=== PATIENT | female | born 2000 | race Caucasian/White ===

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

== ENCOUNTER 2022-10-21 19:30 | Emergency (ER) | payer OTHER ==
[~2022-10-21] VITALS: Ht 160 cm; Wt 100.2 kg
[~2022-10-21 19:30] MED LIST: APRI1 EACH PO; ONDANSETRON ODT8 MG PO
== END 2022-10-21 22:15 | disposition home or self-care (01) ==
LOC: ED 19:30
DX: O99.891 Other specified diseases and conditions complicating pregnancy (principal); R10.2 Pelvic and perineal pain; Z3A.11 11 weeks gestation of pregnancy
CPT/HCPCS: 36415; 76801; 76817; 80053; 81003; 84702; 85025; 99284-25; A9270; J7121

== ENCOUNTER 2023-03-20 07:37 | Emergency (ER) | payer BC, OTHER ==
[~2023-03-20] VITALS: Ht 160 cm; Wt 106.1 kg
--- OUTSIDE RECORDS SUMMARY | ~2023-03-20 | XMS | Continuity of Care Document ---
Demographics + + + | Address | [address] | | | [place] [address] | + + + | Preferred Language | Unknown | + + + | Marital Status | Never | + + + | Shinto Affiliation | Unknown | + + + | Race | White | + + + | Ethnic Group | Not or | + + + Author + + + | Author | [facility] | + + + | Organization | [facility] | + + + | Address | [address] | | | [place] [address] | + + + | Phone | | + + + Care Team Providers + + + + | Care Sole Tacker Name | Role | Phone | + + + + Unavailable | Unavailable | + + + + Unavailable | Unavailable | + + + + Allergies and Intolerances + + + + + + | date | description | facility | reaction | severity | + + + + + + | (no date) | No Known | [facility] | (no reaction) | (no severity) | | | Allergies | | | | + + + + + + Encounters No information. Functional Status No information. Immunizations No information. Medications + + + + | date | description | facility | + + + + | 2023-02-06 00:00 | ONDANSETRON | [facility] | + + + + | 2023-02-06 00:00 | FLUTICASONE PROPIONATE | [facility] | + + + + | 2019-06-03 00:00 | ONDANSETRON | [facility] | + + + + | 2022-10-21 00:00 | DESOGESTREL-ETHINYL | [facility] | | | ESTRADIOL | | + + + + | 2023-02-06 00:00 | DESOGESTREL-ETHINYL | [facility] | | | ESTRADIOL | | + + + + | 2023-02-06 00:00 | CYCLOBENZAPRINE HCL | [facility] | + + + + Problems + + + + | date | description | facility | + + + + | 2017-01-16 00:00 | Contusion of right knee | [facility] | + + + + | 2022-10-06 15:02 | ENCNTR FOR NACHO OF | [facility] | | | NORMAL FIRST PREG, FIRST | | | | TRIMESTER | | + + + + | 2022-10-06 15:02 | LESS THAN 8 WEEKS | [facility] | | | GESTATION OF | | + + + + | 2022-10-21 00:00 | Pain of round ligament | [facility] | + + + + | 2022-10-21 19:30 | PELVIC AND PERINEAL PAIN | [facility] | + + + + | 2022-10-21 19:30 | LEFT LOWER QUADRANT PAIN | [facility] | + + + + | 2022-10-21 19:30 | 11 WEEKS GESTATION OF | [facility] | | | | | + + + + | 2022-12-23 10:50 | ENCNTR FOR SUPRVSN OF | [facility] | | | NORMAL FIRST PREG, SECOND | | | | TRIMESTER | | + + + + | 2022-12-23 10:50 | 20 WEEKS GESTATION OF | [facility] | | | | | + + + + | 2023-01-08 12:58 | DECREASED MOVEMENTS, | [facility] | | | SECOND TRIMESTER, UNSP | | + + + + | 2023-01-08 12:58 | 22 WEEKS GESTATION OF | [facility] | | | | | + + + + | 2023-02-06 00:00 | Chest wall pain | [facility] | + + + + | 2023-02-06 00:00 | Nausea | [facility] | + + + + | 2023-02-06 21:57 | OTH RELATED | [facility] | | | CONDITIONS, SECOND | | | | TRIMESTER | | + + + + | 2023-02-06 21:57 | OTHER CHEST PAIN | [facility] | + + + + | 2023-02-06 21:57 | NAUSEA | [facility] | + + + + | 2023-02-06 21:57 | 27 WEEKS GESTATION OF | [facility] | | | | | + + + + | 2023-02-06 21:57 | 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 Results/Labs +--------+--------+ +---------+--------+---------+ | test | date | facility | value | unit | notes | +--------+--------+ +---------+--------+---------+ + + | Result panel 1 | + + + + + + + + + | | 2022-10-21 | [facility] | YELLOW | (missing) | (missing) | | (unavailable | 20:15:08 [facility] | | | | + + + + + + + + + | Result panel 2 | + + + + + + + + + | | 2022-10-21 | [facility] | SL CLOUDY | (missing) | (missing) | | (unavailable | 20:15:08 | [facility] | | | | + + + + + + + + + | Result panel 3 | + + + + + + + + + | | 2022-10-21 | [facility] | NEGATIVE | (missing) | (missing) | | (unavailable | 20:15:08 [facility] | | | | + + + + + + + + + | Result panel 4 | + + + + + + + + + | | 2022-10-21 | [facility] | POSITIVE | (missing) | (missing) | | (unavailable | 20:15:08 [facility] | | | | + + + + + + + + + | Result panel 5 | + + + + + +---------+ + + | | 2022-10-21 | [facility] | SMALL | (missing) | (missing) | | (unavailable | 20:15:08 [facility] | | | | + + + +---------+ + + + + | Result panel 6 | + + + + + +---------+ + + | | 2022-10-21 | [facility] | 1.025 | (missing) | (missing) | | (unavailable | 20:15:08 [facility] | | | | + + + +---------+ + + + + | Result panel 7 | + + + + + + + + + | | 2022-10-21 | [facility] | NEGATIVE | (missing) | (missing) | | (unavailable | 20:15:08 [facility] | | | | + + + + + + + + + | Result panel 8 | + + + + + +-------+ + + | | 2022-10-21 | [facility] | 6.0 | (missing) | (missing) | | (unavailable | 20:15:08 [facility] | | | | + + + +-------+ + + + + | Result panel 9 | + + + + + + + + + | | 2022-10-21 | [facility] | NEGATIVE | (missing) | (missing) | | (unavailable | 20:15:08 [facility] | | | | + + + + + + + + + | Result panel 10 | + + + + + +-------+ + + | | 2022-10-21 | [facility] | 1.0 | (missing) | (missing) | | (unavailable | 20:15:08 [facility] | | | | + + + +-------+ + + + + | Result panel 11 | + + + + + + + + + | | 2022-10-21 | [facility] | NEGATIVE | (missing) | (missing) | | (unavailable | 20:15:08 [facility] | | | | + + + + + + + + + | Result panel 12 | + + + + + + + + + | | 2022-10-21 | [facility] | NEGATIVE | (missing) | (missing) | | (unavailable | 20:15:08 [facility] | | | | + + + + + + + + + | Result panel 13 | + + + + + +-------+ + + | | 2022-10-21 | [facility] | 9.2 | (missing) | (missing) | | (unavailable | 20:25:08 [facility] | | | | + + + +-------+ + + + + | Result panel 14 | + + + + + +--------+ + + | | 2022-10-21 | [facility] | 4.70 | (missing) | (missing) | | (unavailable | 20:25:08 [facility] | | | | + + + +--------+ + + + + | Result panel 15 | + + + + + +--------+ + + | | 2022-10-21 | [facility] | 13.5 | (missing) | (missing) | | (unavailable | 20:25:08 [facility] | | | | + + + +--------+ + + + + | Result panel 16 | + + + + + +--------+ + + | | 2022-10-21 | [facility] | 40.9 | (missing) | (missing) | | (unavailable | 20:25:08 [facility] | | | | + + + +--------+ + + + + | Result panel 17 | + + + + + +--------+ + + | | 2022-10-21 | [facility] | 87.1 | (missing) | (missing) | | (unavailable | 20:25:08 [facility] | | | | + + + +--------+ + + + + | Result panel 18 | + + + + + +--------+ + + | | 2022-10-21 | [facility] | 28.7 | (missing) | (missing) | | (unavailable | 20:25:08 [facility] | | | | + + + +--------+ + + + + | Result panel 19 | + + + + + +--------+ + + | | 2022-10-21 | [facility] | 33.0 | (missing) | (missing) | | (unavailable | 20:25:08 [facility] | | | | + + + +--------+ + + + + | Result panel 20 | + + + + + +--------+ + + | | 2022-10-21 | [facility] | 13.6 | (missing) | (missing) | | (unavailable | 20:25:08 [facility] | | | | + + + +--------+ + + + + | Result panel 21 | + + + + + +-------+ + + | | 2022-10-21 | [facility] | 184 | (missing) | (missing) | | (unavailable | 20:25:08 [facility] | | | | + + + +-------+ + + + + | Result panel 22 | + + + + + +--------+ + + | | 2022-10-21 | [facility] | 61.8 | (missing) | (missing) | | (unavailable | 20:25:08 [facility] | | | | + + + +--------+ + + + + | Result panel 23 | + + + + + +--------+ + + | | 2022-10-21 | [facility] | 29.9 | (missing) | (missing) | | (unavailable | 20:25:08 [facility] | | | | + + + +--------+ + + + + | Result panel 24 | + + + + + +-------+ + + | | 2022-10-21 | [facility] | 5.9 | (missing) | (missing) | | (unavailable | 20:25:08 [facility] | | | | + + + +-------+ + + + + | Result panel 25 | + + + + + +-------+ + + | | 2022-10-21 | [facility] | 1.7 | (missing) | (missing) | | (unavailable | 20:25:08 [facility] | | | | + + + +-------+ + + + + | Result panel 26 | + + + + + +-------+ + + | | 2022-10-21 | [facility] | 0.7 | (missing) | (missing) | | (unavailable | 20:25:08 [facility] | | | | + + + +-------+ + + + + | Result panel 27 | + + + + + +------+---------+ + | | 2022-10-21 | [facility] | 88 | mg/dL | (missing) | | (unavailable | 20:25:08 [facility] | | | | + + + +------+---------+ + + + | Result panel 28 | + + + + + +-----+---------+ + | | 2022-10-21 | [facility] | 7 | mg/dL | (missing) | | (unavailable | 20:25:08 [facility] | | | | + + + +-----+---------+ + + + | Result panel 29 | + + + + + +--------+---------+ + | | 2022-10-21 | [facility] | 0.69 | mg/dL | (missing) | | (unavailable | 20:25:08 [facility] | | | | + + + +--------+---------+ + + + | Result panel 30 | + + + + + +-------+ + + | | 2022-10-21 | [facility] | 127 | (missing) | (missing) | | (unavailable | 20:25:08 [facility] | | | | + + + +-------+ + + + + | Result panel 31 | + + + + + +---------+ + + | | 2022-10-21 | [facility] | 10.14 | (missing) | (missing) | | (unavailable | 20:25:08 [facility] | | | | + + + +---------+ + + + + | Result panel 32 | + + + + + +-------+ + + | | 2022-10-21 | [facility] | 138 | (missing) | (missing) | | (unavailable | 20:25:08 [facility] | | | | + + + +-------+ + + + + | Result panel 33 | + + + + + +-------+ + + | | 2022-10-21 | [facility] | 3.3 | (missing) | (missing) | | (unavailable | 20:25:08 [facility] | | | | + + + +-------+ + + + + | Result panel 34 | + + + + + +-------+ + + | | 2022-10-21 | [facility] | 102 | (missing) | (missing) | | (unavailable | 20:25:08 | [facility] | | | | + + + +-------+ + + + + | Result panel 35 | + + + + + +------+ + + | | 2022-10-21 | [facility] | 24 | (missing) | (missing) | | (unavailable | 20:25:08 [facility] | | | | + + + +------+ + + + + | Result panel 36 | + + + + + +--------+ + + | | 2022-10-21 | [facility] | 15.3 | (missing) | (missing) | | (unavailable | 20:25:08 [facility] | | | | + + + +--------+ + + + + | Result panel 37 | + + + + + +-------+---------+ + | | 2022-10-21 | [facility] | 9.2 | mg/dL | (missing) | | (unavailable | 20:25:08 [facility] | | | | + + + +-------+---------+ + + + | Result panel 38 | + + + + + +-------+ + + | | 2022-10-21 | [facility] | 7.5 | (missing) | (missing) | | (unavailable | 20:25:08 [facility] | | | | + + + +-------+ + + + + | Result panel 39 | + + + + + +-------+ + + | | 2022-10-21 | [facility] | 3.6 | (missing) | (missing) | | (unavailable | 20:25:08 [facility] | | | | + + + +-------+ + + + + | Result panel 40 | + + + + + +-------+ + + | | 2022-10-21 | [facility] | 3.9 | (missing) | (missing) | | (unavailable | 20:25:08 [facility] | | | | + + + +-------+ + + + + | Result panel 41 | + + + + + +--------+ + + | | 2022-10-21 | [facility] | 0.92 | (missing) | (missing) | | (unavailable | 20:25:08 [facility] | | | | + + + +--------+ + + + + | Result panel 42 | + + + + + +-------+ + + | | 2022-10-21 | [facility] | 0.3 | (missing) | (missing) | | (unavailable | 20:25:08 [facility] | | | | + + + +-------+ + + + + | Result panel 43 | + + + + + +------+ + + | | 2022-10-21 | [facility] | 27 | (missing) | (missing) | | (unavailable | 20:25:08 [facility] | | | | + + + +------+ + + + + | Result panel 44 | + + + + + +------+ + + | | 2022-10-21 | [facility] | 34 | (missing) | (missing) | | (unavailable | 20:25:08 [facility] | | | | + + + +------+ + + + + | Result panel 45 | + + + + + +------+ + + | | 2022-10-21 | [facility] | 66 | (missing) | (missing) | | (unavailable | 20:25:08 [facility] | | | | + + + +------+ + + + + | Result panel 46 | + + + + + +---------+ + + | | 2022-10-21 | [facility] | [address] | (missing) | (missing) | | (unavailable | 20:25:08 [facility] | | | | + + + +---------+ + + + + | Result panel 47 | + + + + + +--------+ + + | | 2023-02-06 | [facility] | 10.6 | (missing) | (missing) | | (unavailable | 22:20:07 [facility] | | | | + + + +--------+ + + + + | Result panel 48 | + + + + + +--------+ + + | | 2023-02-06 | [facility] | 62.1 | (missing) | (missing) | | (unavailable | 22:20:07 [facility] | | | | + + + +--------+ + + + + | Result panel 49 | + + + + + +--------+ + + | | 2023-02-06 | [facility] | 28.2 | (missing) | (missing) | | (unavailable | 22:20:07 [facility] | | | | + + + +--------+ + + + + | Result panel 50 | + + + + + +-------+ + + | | 2023-02-06 | [facility] | 6.0 | (missing) | (missing) | | (unavailable | 22:20:07 [facility] | | | | + + + +-------+ + + + + | Result panel 51 | + + + + + +-------+ + + | | 2023-02-06 | [facility] | 3.2 | (missing) | (missing) | | (unavailable | 22:20:07 [facility] | | | | + + + +-------+ + + + + | Result panel 52 | + + + + + +-------+ + + | | 2023-02-06 | [facility] | 0.5 | (missing) | (missing) | | (unavailable | 22:20:07 [facility] | | | | + + + +-------+ + + + + | Result panel 53 | + + + + + +--------+ + + | | 2023-02-06 | [facility] | 3.93 | (missing) | (missing) | | (unavailable | 22:20:07 [facility] | | | | + + + +--------+ + + + + | Result panel 54 | + + + + + +--------+ + + | | 2023-02-06 | [facility] | 11.6 | (missing) | (missing) | | (unavailable | 22:20:07 [facility] | | | | + + + +--------+ + + + + | Result panel 55 | + + + + + +------+---------+ + | | 2023-02-06 | [facility] | 79 | mg/dL | (missing) | | (unavailable | 22:20:07 [facility] | | | | + + + +------+---------+ + + + | Result panel 56 | + + + + + +-----+---------+ + | | 2023-02-06 | [facility] | 7 | mg/dL | (missing) | | (unavailable | 22:20:07 [facility] | | | | + + + +-----+---------+ + + + | Result panel 57 | + + + + + +--------+---------+ + | | 2023-02-06 | [facility] | 0.60 | mg/dL | (missing) | | (unavailable | 22:20:07 [facility] | | | | + + + +--------+---------+ + + + | Result panel 58 | + + + + + +-------+ + + | | 2023-02-06 | [facility] | 130 | (missing) | (missing) | | (unavailable | 22:20:07 [facility] | | | | + + + +-------+ + + + + | Result panel 59 | + + + + + +---------+ + + | | 2023-02-06 | [facility] | 11.66 | (missing) | (missing) | | (unavailable | 22:20:07 [facility] | | | | + + + +---------+ + + + + | Result panel 60 | + + + + + +-------+ + + | | 2023-02-06 | [facility] | 137 | (missing) | (missing) | | (unavailable | 22:20:07 [facility] | | | | + + + +-------+ + + + + | Result panel 61 | + + + + + +-------+ + + | | 2023-02-06 | [facility] | 3.2 | (missing) | (missing) | | (unavailable | 22:20:07 [facility] | | | | + + + +-------+ + + + + | Result panel 62 | + + + + + +-------+ + + | | 2023-02-06 | [facility] | 105 | (missing) | (missing) | | (unavailable | 22:20:07 [facility] | | | | + + + +-------+ + + + + | Result panel 63 | + + + + + +------+ + + | | 2023-02-06 | [facility] | 24 | (missing) | (missing) | | (unavailable | 22:20:07 [facility] | | | | + + + +------+ + + + + | Result panel 64 | + + + + + +--------+ + + | | 2023-02-06 | [facility] | 34.7 | (missing) | (missing) | | (unavailable | 22:20:07 [facility] | | | | + + + +--------+ + + + + | Result panel 65 | + + + + + +--------+ + + | | 2023-02-06 | [facility] | 11.2 | (missing) | (missing) | | (unavailable | 22:20:07 [facility] | | | | + + + +--------+ + + + + | Result panel 66 | + + + + + +-------+---------+ + | | 2023-02-06 | [facility] | 8.6 | mg/dL | (missing) | | (unavailable | ::07 | [facility] | | | | + + + +-------+---------+ + + + | Result panel 67 | + + + + + +-------+ + + | | 2023-02-06 | [facility] | 6.6 | (missing) | (missing) | | (unavailable | 22:20:07 [facility] | | | | + + + +-------+ + + + + | Result panel 68 | + + + + + +-------+ + + | | 2023-02-06 | [facility] | 2.7 | (missing) | (missing) | | (unavailable | 22:20:07 [facility] | | | | + + + +-------+ + + + + | Result panel 69 | + + + + + +-------+ + + | | 2023-02-06 | [facility] | 3.9 | (missing) | (missing) | | (unavailable | 22:20:07 [facility] | | | | + + + +-------+ + + + + | Result panel 70 | + + + + + +--------+ + + | | 2023-02-06 | [facility] | 0.69 | (missing) | (missing) | | (unavailable | 22:20:07 [facility] | | | | + + + +--------+ + + + + | Result panel 71 | + + + + + +-------+ + + | | 2023-02-06 | [facility] | 0.2 | (missing) | (missing) | | (unavailable | 22:20:07 [facility] | | | | + + + +-------+ + + + + | Result panel 72 | + + + + + +------+ + + | | 2023-02-06 | [facility] | 21 | (missing) | (missing) | | (unavailable | 22:20:07 [facility] | | | | + + + +------+ + + + + | Result panel 73 | + + + + + +------+ + + | | 2023-02-06 | [facility] | 40 | (missing) | (missing) | | (unavailable | 22:20:07 [facility] | | | | + + + +------+ + + + + | Result panel 74 | + + + + + +------+ + + | | 2023-02-06 | [facility] | 77 | (missing) | (missing) | | (unavailable | 22:20:07 [facility] | | | | + + + +------+ + + + + | Result panel 75 | + + + + + +--------+ + + | | 2023-02-06 | [facility] | 88.3 | (missing) | (missing) | | (unavailable | 22:20:07 [facility] | | | | + + + +--------+ + + + + | Result panel 76 | + + + + + +--------+ + + | | 2023-02-06 | [facility] | <4.0 | (missing) | (missing) | | (unavailable | 22:20:07 [facility] | | | | + + + +--------+ + + + + | Result panel 77 | + + + + + +--------+ + + | | 2023-02-06 | [facility] | 29.4 | (missing) | (missing) | | (unavailable | ::07 | [facility] | | | | + + + +--------+ + + + + | Result panel 78 | + + + + + +--------+ + + | | 2023-02-06 | [facility] | 33.3 | (missing) | (missing) | | (unavailable | ::07 | [facility] | | | | + + + +--------+ + + + + | Result panel 79 | + + + + + +--------+ + + | | 2023-02-06 | [facility] | 13.6 | (missing) | (missing) | | (unavailable | 22:20:07 [facility] | | | | + + + +--------+ + + + + | Result panel 80 | + + + + + +-------+ + + | | 2023-02-06 | [facility] | 162 | (missing) | (missing) | | (unavailable | 22:20:07 [facility] | | | | + + + +-------+ + + + + | Result panel 81 | + + + + + + + + + | | 2023-02-06 | [facility] | YELLOW | (missing) | (missing) | | (unavailable | 22:37:07 [facility] | | | | + + + + + + + + + | Result panel 82 | + + + + + +---------+ + + | | 2023-02-06 | [facility] | CLEAR | (missing) | (missing) | | (unavailable | 22:37:07 [facility] | | | | + + + +---------+ + + + + | Result panel 83 | + + + + + + + + + | | 2023-02-06 | [facility] | NEGATIVE | (missing) | (missing) | | (unavailable | 22:37:07 [facility] | | | | + + + + + + + + + | Result panel 84 | + + + + + + + + + | | 2023-02-06 | [facility] | NEGATIVE | (missing) | (missing) | | (unavailable | 22:37:07 [facility] | | | | + + + + + + + + + | Result panel 85 | + + + + + + + + + | | 2023-02-06 | [facility] | NEGATIVE | (missing) | (missing) | | (unavailable | 22:37:07 [facility] | | | | + + + + + + + + + | Result panel 86 | + + + + + +---------+ + + | | 2023-02-06 | [facility] | 1.010 | (missing) | (missing) | | (unavailable | 22:37:07 [facility] | | | | + + + +---------+ + + + + | Result panel 87 | + + + + + + + + + | | 2023-02-06 | [facility] | NEGATIVE | (missing) | (missing) | | (unavailable | 22:37:07 [facility] | | | | + + + + + + + + + | Result panel 88 | + + + + + +-------+ + + | | 2023-02-06 | [facility] | 7.0 | (missing) | (missing) | | (unavailable | 22:37:07 [facility] | | | | + + + +-------+ + + + + | Result panel 89 | + + + + + + + + + | | 2023-02-06 | [facility] | NEGATIVE | (missing) | (missing) | | (unavailable | 22:37:07 [facility] | | | | + + + + + + + + + | Result panel 90 | + + + + + + + + + | | 2023-02-06 | [facility] | NORMAL | (missing) | (missing) | | (unavailable | 22:37:07 | [facility] | | | | + + + + + + + + + | Result panel 91 | + + + + + + + + + | | 2023-02-06 | [facility] | NEGATIVE | (missing) | (missing) | | (unavailable | 22:37:07 | [facility] | | | | + + + + + + + + + | Result panel 92 | + + + + + +---------+ + + | | 2023-02-06 | [facility] | SMALL | (missing) | (missing) | | (unavailable | 22:37:07 | [facility] | | | | + + + +---------+ + + + + | Result panel 93 | + + + + + +-------+ + + | | 2023-02-06 | [facility] | 0-1 | (missing) | (missing) | | (unavailable | 22:37:07 | [facility] | | | | + + + +-------+ + + + + | Result panel 94 | + + + + + +-------+ + + | | 2023-02-06 | [facility] | 2-3 | (missing) | (missing) | | (unavailable | [facility]:37:07 | [facility] | | | | + + + +-------+ + + + + | Result panel 95 | + + + + + + + + + | | 2023-02-06 | [facility] | SQUAMOUS 1+ | (missing) | (missing) | | (unavailable | 22:37:07 | [facility] | | | | + + + + + + + + + | Result panel 96 | + + + + + +------+ + + | | 2023-02-06 | [facility] | No | (missing) | (missing) | | (unavailable | 22:37:07 | [facility] | | | | + + + +------+ + + Social History No information. Vital Signs + + + +---------+ | date | measurement | value | units | + + + +---------+ | 2022-10-21 00:00 | BMI | 39.1 | kg/m2 | + + + +---------+ | 2022-10-21 00:00 | BP_diastolic | 61 | mmHg | + + + +---------+ | 2022-10-21 00:00 | BP_systolic | 123 | mmHg | + + + +---------+ | 2022-10-21 00:00 | heart_rate | 91 | /min | + + + +---------+ | 2022-10-21 00:00 | height_metric | 160.02 | cm | + + + +---------+ | 2022-10-21 00:00 | height_standard | 63 | in | + + + +---------+ | 2022-10-21 00:00 | o2_saturation | 100 | % | + + + +---------+ | 2022-10-21 00:00 | respiration_rate | 11 | /min | + + + +---------+ | 2022-10-21 00:00 | temperature_metric | 36.67 | C | | | | | | + + + +---------+ | 2022-10-21 00:00 | | 98 | F | | | temperature_standar | | | | | d | | | + + + +---------+ | 2022-10-21 00:00 | weight_metric | 100.24 | kg | + + + +---------+ | 2022-10-21 00:00 | weight_standard | 220.99 | lb | + + + +---------+ | 2022-10-21 00:00 | weight_standard | 221 | lb | + + + +---------+ | 2023-02-06 00:00 | BMI | 40.6 | kg/m2 | + + + +---------+ | 2023-02-06 00:00 | BP_diastolic | 77 | mmHg | + + + +---------+ | 2023-02-06 00:00 | BP_systolic | 124 | mmHg | + + + +---------+ | 2023-02-06 00:00 | heart_rate | 78 | /min | + + + +---------+ | 2023-02-06 00:00 | height_metric | 160.02 | cm | + + + +---------+ | 2023-02-06 00:00 | height_standard | 63 | in | + + + +---------+ | 2023-02-06 00:00 | o2_saturation | 100 | % | + + + +---------+ | 2023-02-06 00:00 | respiration_rate | 16 | /min | + + + +---------+ | 2023-02-06 00:00 | temperature_metric | 36.67 | C | | | | | | + + + +---------+ | 2023-02-06 00:00 | | 98 | F | | | temperature_standar | | | | | d | | | + + + +---------+ | 2023-02-06 00:00 | weight_metric | 103.9 | kg | + + + +---------+ | 2023-02-06 00:00 | weight_standard | 229.06 | lb | + + + +---------+"
--- OUTSIDE RECORDS SUMMARY | ~2023-03-20 | XMS | Continuity of Care Document ---
Demographics + + + | Address | [address] | | | [place] [address] | + + + | Preferred Language | Unknown | + + + | Marital Status | Never | + + + | Pentecostalism Affiliation | Unknown | + + + | Race | White | + + + | Ethnic Group | Not or | + + + Author + + + | Author | [facility] | + + + | Organization | [facility] | + + + | Address | [address] [facility] | | | [place] [address] | + + + | Phone | | + + + Care Team Providers + + + + | Care Area Development Consultant Name | Role | Phone | + [...] | 2023-02-06 00:00 | ONDANSETRON | [facility] | + + + + | 2023-02-06 00:00 | FLUTICASONE PROPIONATE | [facility] | + + + + | 2019-06-03 00:00 | ONDANSETRON | [facility] | + + + + | 2022-10-21 00:00 | DESOGESTREL-ETHINYL | [facility] | | | ESTRADIOL | | + + + + | 2023-02-06 00:00 | DESOGESTREL-ETHINYL | [facility] | | | ESTRADIOL | | + + + + | 2023-02-06 00:00 | CYCLOBENZAPRINE HCL | [facility] | + + + + Problems + + + + | date | description | facility | + + + + | 2017-01-16 00:00 | Contusion of right knee | [facility] | + + + + | 2022-10-06 [...] | Pain of round ligament | [facility] | + + + + | [...] 00:00 | Chest wall pain | [facility] | + + + + | 2023-02-06 00:00 | Nausea | [facility] | + + + + | [...] + + | 2023-02-06 21:57 | OTHER [employer]ER (CURRENT) | [facility] | | | DRUG [...] | | 2022-10-21 | [facility] | [id number] | (missing) | (missing) | | (unavailable [...]
[~2023-03-20 07:37] MED LIST changes: +CYCLOBENZAPRINE10 MG PO; +FLONASE ALLERG9.9 ML NAS; +ONDANSETRON ODT4 MG PO; +PRENATAL GUMMI1 EACH PO
[2023-03-20 08:12] VITALS: BP 99/72
== END 2023-03-20 08:13 | disposition home or self-care (01) ==
LOC: ED 07:37
DX: R07.0 Pain in throat (principal); Z79.899 Other long term (current) drug therapy
CPT/HCPCS: 99283

== ENCOUNTER 2024-07-18 05:28 | Inpatient (IN) | payer BC, OTHER ==
[~2024-07-18] VITALS: Ht 160 cm; Wt 124.3 kg
[2024-07-18] MEDS ORDERED: OXYTOCIN/DEXTROSE 5% 20 UNITS/100 ML BAG IV SCH (05:45)
[2024-07-18] MEDS ORDERED: CALCIUM CARBONATE 500 MG CHEW PO PRN (05:45)
[2024-07-18] MEDS ORDERED: LIDOCAINE 2% VISCOUS 6 ML SYR TOP ONE ×2 (05:45)
[2024-07-18] MEDS ORDERED: LACTATED RINGER'S 1,000 ML IV SCH (05:45)
[2024-07-18] MEDS ORDERED: LACTATED RINGER'S 1,000 ML IV PRN (05:45)
[2024-07-18] MEDS ORDERED: MAGNESIUM HYDROXIDE/AL HYDROX 30 ML CUP PO PRN (05:45)
[2024-07-18 06:04] VITALS: BP 102/51
[2024-07-18 06:30] LABS: AMPHETAMINES, URINE NEGATIVE (NEGATIVE); BARBITURATES, URINE NEGATIVE (NEGATIVE); BENZODIAZEPINE, URINE NEGATIVE (NEGATIVE); BUPRENORPHINE, URINE NEGATIVE (NEGATIVE); CANNABINOID, URINE NEGATIVE (NEGATIVE); COCAINE, URINE NEGATIVE (NEGATIVE); ECSTASY, URINE NEGATIVE (NEGATIVE); FENTANYL, URINE NEGATIVE (NEGATIVE); METHADONE, URINE NEGATIVE (NEGATIVE); OPIATES, URINE NEGATIVE (NEGATIVE); OXYCODONE, URINE NEGATIVE (NEGATIVE); PHENCYCLIDINE, URINE NEGATIVE (NEGATIVE)
[2024-07-18 06:47] LABS: HEMATOCRIT 36.4 % (35.0-50.0); HEMOGLOBIN 12.1 g/dL (12.0-18.0); MCH 28.5 (27-36); MCHC 33.3 g/dl (30-36); MCV 85.6 fl (81-99); RBC 4.25 M/ul (4.3-5.7); RDW 16.5 (10.5-15.0)
[2024-07-18 07:19] LABS: ABO A; ANTIBODY SCREEN NEGATIVE; RH POSITIVE
[2024-07-18] MEDS ORDERED: OXYTOCIN/0.9 % SODIUM CHLORIDE 500 ML IV SCH (11:15)
[2024-07-18] MEDS ORDERED: fentaNYL citrate 100 MCG/2 ML VIAL ONE (16:37)
[2024-07-18] MEDS ORDERED: LACTATED RINGER'S 500 ML IV PRN (16:45)
[2024-07-18] MEDS ORDERED: ePHEDrine sulfate 5 MG/ML SYRINGE IV PRN (16:45)
[2024-07-18] MEDS ORDERED: LACTATED RINGER'S 2,000 ML IV ONE (16:45)
[2024-07-18] MEDS ORDERED: ROPIVACAINE 0.2% 200 ML BAG EPIDURAL SCH (16:45)
[2024-07-18] MEDS ORDERED: ePHEDrine KIT FOR FBC IV ONE ×2 (17:13→20:04)
[2024-07-18] MEDS ORDERED: TERBUTALINE SULFATE 1 MG/ML AMP SUB-Q ONE (18:15)
[2024-07-19] MEDS ORDERED: OXYCODONE/APAP 5/325 TAB PO PRN (05:15)
[2024-07-19] MEDS ORDERED: BENZOCAINE 60 ML AEROSOL TOP PRN (05:15)
[2024-07-19] MEDS ORDERED: HYDROCORTISONE ACETATE 25 MG SUPP PR PRN (05:15)
[2024-07-19] MEDS ORDERED: OXYTOCIN/0.9 % SODIUM CHLORIDE 500 ML IV SCH (05:15)
[2024-07-19] MEDS ORDERED: MAGNESIUM HYDROXIDE/AL HYDROX 30 ML CUP PO PRN (05:15)
[2024-07-19] MEDS ORDERED: IBUPROFEN 600 MG TAB PO PRN (05:15)
[2024-07-19] MEDS ORDERED: MAGNESIUM HYDROXIDE 30 ML UDC PO PRN (05:15)
[2024-07-19] MEDS ORDERED: ACETAMINOPHEN 325 MG TAB PO PRN (05:15)
[2024-07-19] MEDS ORDERED: CALCIUM CARBONATE 500 MG CHEW PO PRN (05:15)
[2024-07-19] MEDS ORDERED: WITCH HAZEL/GLYCERIN 1 EA PAD TOP PRN (05:15)
[2024-07-19] MEDS ORDERED: HYDROCODONE/ACETA 5/325 TAB PO PRN (05:15)
[2024-07-19] MEDS ORDERED: SENNOSIDES/DOCUSATE 1 EA TAB PO SCH (09:00)
[2024-07-19 18:54] LABS: HEMATOCRIT 32.2 % (35.0-50.0); HEMOGLOBIN 10.5 g/dL (12.0-18.0); MCH 28.3 (27-36); MCHC 32.7 g/dl (30-36); MCV 86.6 fl (81-99); RBC 3.72 M/ul (4.3-5.7); RDW 16.5 (10.5-15.0)
[2024-07-21] MEDS ORDERED: VALACYCLOVIR HCL 500 MG TAB PO ONE (09:00)
--- NOTE | 2024-07-24 16:14 | PR ---
[facility] [address] [facility] [place], [place] [address] Signed Progress Notes IP Datetime Report Generated by CPN: 07/18/2024 12:29 PROGRESS NOTES: [id number] Impression: Reassuring Heart Rate Plan: Continue Present Management; Augmentation VITAL SIGNS: [id number] Vital Signs: Reviewed; Within Normal Limits EXAM: [id number] Effacement: 70 Station: -3 MEMBRANES: [id number] ROM Note: No fluid noted on chux. Comments: Pt sleeping. Doing well. Cat 1 tracing. On pitocin augmentation w/ rare contractions. Continue pitocin per protocol. FETUS A: [id number] FHR Baseline: 130 Variability: Moderate 6-25bpm Accelerations: 15X15 Decelerations: None FHR Category: Category I Presentation: Vertex Comments on Fetus A: No evidence of metabolic acidosis FETUS B: [id number] Signing Physician: Suzanne Morgan DO Copies: ~ *Electronically Signed* 07/18/24 9313 SUZANNE MORGAN (MICHAEL) DO PATIENT NAME: KAREY GUZMAN PROGRESS NOTE DATE OF : 00 PHYSICIAN: SUZANNE MORGAN (MICHAEL) DO RPT #: [id number] REPORT IS CONFIDENTIAL AND NOT TO BE RELEASED WITHOUT AUTHORIZATION
--- NOTE | 2024-07-24 16:14 | PR ---
[facility] [address] [place], [place] [address] Signed Progress Notes IP Datetime Report Generated by CPN: 07/18/2024 15:03 PROGRESS NOTES: [id number] Impression: Normal Progression of Labor; Reassuring Heart Rate Procedures: Intrauterine Pressure Catheter; Scalp Electrode; Sterile Vag Exam Plan: Continue Present Management; Augmentation Informed Consent Obtain: Vaginal Delivery VITAL SIGNS: [id number] Vital Signs: Reviewed; Within Normal Limits EXAM: [id number] Dilatation: 3.0 Effacement: 75 Station: -2 MEMBRANES: [id number] ROM Note: No fluid noted on chux. Comments: Pt seen and examined. Doing well. Comfortable w/ contractions. Difficulty monitoring CTXs and fetus. Recommended IUPC / FSE. Placed w/out difficulty after verbal consent obtained. Discussed titration of pitocin as needed to establish adequate contractions. Anticipate . Epidural on demand FETUS A: [id number] FHR Baseline: 130 Variability: Moderate 6-25bpm Accelerations: 15X15 Decelerations: None FHR Category: Category I Presentation: Vertex Comments on Fetus A: No evidence of metabolic acidosis FETUS B: [id number] Signing Physician: Suzanne Morgan DO Copies: ~ *Electronically Signed* 07/18/24 4911 SUZANNE MORGAN (MICHAEL) DO PATIENT NAME: KAREY GUZMAN PROGRESS NOTE DATE OF : 00 PHYSICIAN: SUZANNE MORGAN (JD) DO RPT #: [id number] REPORT IS CONFIDENTIAL AND NOT TO BE RELEASED WITHOUT AUTHORIZATION
--- NOTE | 2024-07-24 16:14 | PR ---
[facility] [address] [place], [place] [address] Signed Progress Notes IP Datetime Report Generated by CPN: 07/18/2024 20:21 PROGRESS NOTES: [id number] Impression: Reassuring Heart Rate Procedures: Sterile Vag Exam Other Procedures: Exam per RN Plan: Anesthesia Consult Other Plans: Restart pitocin augmentation w/ sustained normotension Informed Consent Obtain: Risks, Benefits and Alternatives Discussed VITAL SIGNS: [id number] Vital Signs: Reviewed; Within Normal Limits EXAM: [id number] Dilatation: 4.0 Effacement: 75 Station: -2 Contractions: Rare MEMBRANES: [id number] Membranes Status: Ruptured ROM Note: No fluid noted on chux. Comments: Pt seen and evaluted. Doing well. Relative hypotension w/out lightheadedness or dizziness. Cat 1 tracing with rare and inadequate contractions. Anesthesia was notified and RN instructed to continue IV fluid bolus, decrease epidural rate, and continue ephedrine. Once stable normotension noted, will plan on restarting pitocin augmentation. No evidence of intraamniotic infection. Reviewed plan in detail w/ pt and pt understands and agrees. All questions answered. FETUS A: [id number] FHR Baseline: 130 Variability: Moderate 6-25bpm Accelerations: 15X15 Decelerations: None FHR Category: Category I Presentation: Vertex Comments on Fetus A: No evidence of metabolic acidosis FETUS B: [id number] Signing Physician: Suzanne Morgan DO Copies: *Electronically Signed* 07/18/242020 SUZANNE MORGAN (MICHAEL) DO PATIENT NAME: KAREY GUZMAN PROGRESS NOTE DATE OF : 00 PHYSICIAN: SUZANNE MORGAN (JD) DO RPT #: [id number] REPORT IS CONFIDENTIAL AND NOT TO BE RELEASED WITHOUT AUTHORIZATION [facility] [address] [place] [address] [place] [address] Signed ~ *Electronically Signed* 07/18/242020 SUZANNE MORGAN) DO PATIENT NAME: KAREY GUZMAN PROGRESS NOTE DATE OF : 00 PHYSICIAN: SUZANNE MORGAN (JD) DO RPT #: [id number] REPORT IS CONFIDENTIAL AND NOT TO BE RELEASED WITHOUT AUTHORIZATION
--- NOTE | 2024-07-24 16:14 | PR ---
[facility] [address] [place], [place] [address] Signed Progress Notes IP Datetime Report Generated by CPN: 07/18/2024 18:15 PROGRESS NOTES: [id number] Impression: Normal Progression of Labor; Reassuring Heart Rate Procedures: Intrauterine Pressure Catheter; Sterile Vag Exam Plan: Tocolysis Informed Consent Obtain: Vaginal Delivery VITAL SIGNS: [id number] Vital Signs: Reviewed; Within Normal Limits EXAM: [id number] Dilatation: 4.0 Effacement: 75 Station: -2 Contractions: Rare MEMBRANES: [id number] Membranes Status: Ruptured ROM Note: No fluid noted on chux. Comments: Pt seen and examined. Labile BPs following epidural placement. Pt given ephedrine per protocol. IUPC was dislodged during epidural and was replaced after verbal consent. Prolonged deceleration noted. Pitocin previously stopped. Repositioning and IV fluid bolus given. Subq terbutaline administered. FHT reasuring now. Will monitor. Discussed w/ pt and recommend continued trial of vaginal delivery. Pt understands w/ plan of care. All questions answered. FETUS A: [id number] FHR Baseline: 130 Variability: Minimal - >Undetectable to <=5bpm Accelerations: 15X15 Decelerations: None FHR Category: Category II Presentation: Vertex Comments on Fetus A: No evidence of metabolic acidosis FETUS B: [id number] Signing Physician: Suzanne Morgan DO Copies: ~ *Electronically Signed* 07/18/24 5721 SUZANNE MORGAN (MICHAEL) DO PATIENT NAME: KAREY GUZMAN PROGRESS NOTE DATE OF : 00 PHYSICIAN: SUZANNE MORGAN (JD) DO RPT #: [id number] REPORT IS CONFIDENTIAL AND NOT TO BE RELEASED WITHOUT AUTHORIZATION
--- NOTE | 2024-07-24 16:14 | PR ---
[facility] [address] [facility] [place], [place] [address] Signed PP Progress Notes Datetime Report Generated by CPN: 07/20/2024 08:28 SUBJECTIVE: [id number] Pain: Within Normal Limits Nausea/Vomiting: Denies Flatus: Yes Vital Signs: [id number] Vital Signs: Reviewed; Within Normal Limits Cardiovascular: Normal Respiratory: Normal Abdomen/Uterus: Normal Lochia: Normal Vulva/Perineum: Not Done Breasts: Not Done CVA Tenderness: Normal Extremities: Normal Incision: Not Applicable Progress: Normal Exam Comments: Fundus firm U-2 nontender IMPRESSION/PLAN/PROCEDURES: [id number] Impression: Normal Progression Progress Notes: Pt doing well. Ambulating, voiding, and tolerating full diet. Pain and lochia minimal. . No fever/chills or other concerns. Anticipate d/c home tomorrow with baby. No questions or concerns. Signing Physician: Suzanne Morgan DO Copies: ~ *Electronically Signed* 07/20/24827 SUZANNE MORGAN (MICHAEL) DO PATIENT NAME: KAREY GUZMAN PROGRESS NOTE DATE OF : 00 PHYSICIAN: SUZANNE MORGAN (MICHAEL) DO RPT #: [id number] REPORT IS CONFIDENTIAL AND NOT TO BE RELEASED WITHOUT AUTHORIZATION
--- NOTE | 2024-07-24 16:14 | PR ---
[facility] [address] [facility] [place], [place] [address] Signed PP Progress Notes Datetime Report Generated by CPN: 07/21/2024 08:41 SUBJECTIVE: [id number] Pain: Within Normal Limits Nausea/Vomiting: Denies Flatus: Yes Bowel Movement: Yes Vital Signs: [id number] Vital Signs: Reviewed; Within Normal Limits Cardiovascular: Normal Respiratory: Normal Abdomen/Uterus: Normal Lochia: Normal Vulva/Perineum: Not Done Breasts: Not Done CVA Tenderness: Normal Extremities: Normal Incision: Not Applicable Progress: Normal Exam Comments: Fundus firm U-2 nontender IMPRESSION/PLAN/PROCEDURES: [id number] Impression: Normal Progression Plan: Discharge Progress Notes: Pt seen and examined. Doing well. Ambulating, voiding, and tolerating full diet. Pain and lochia minimal. . No fever/chills or other concerns. No lightheadedness / discharge. Afebrile since delivery. Signing Physician: Suzanne Morgan DO Copies: ~ *Electronically Signed* 07/21/24 0841 SUZANNE MORGAN (MICHAEL) DO PATIENT NAME: KAREY GUZMAN PROGRESS NOTE DATE OF : 00 PHYSICIAN: SUZANNE MORGAN) DO RPT #: [id number] REPORT IS CONFIDENTIAL AND NOT TO BE RELEASED WITHOUT AUTHORIZATION
--- NOTE | 2024-07-24 16:14 | PR ---
[facility] [address] [place], [place] [address] Signed Progress Notes IP Datetime Report Generated by CPN: 07/19/2024 03:37 PROGRESS NOTES: [id number] Impression: Normal Progression of Labor; Reassuring Heart Rate Procedures: Scalp Electrode; Sterile Vag Exam Other Procedures: Exam per RN Plan: Continue Present Management; Anticipate Vaginal Delivery Other Plans: Restart pitocin augmentation w/ sustained normotension Informed Consent Obtain: Vaginal Delivery VITAL SIGNS: [id number] Vital Signs: Reviewed; Within Normal Limits EXAM: [id number] Dilatation: 9.0 Effacement: 100 Station: 0 Contractions: q 2-3 min adequate MEMBRANES: [id number] Membranes Status: Ruptured ROM Note: No fluid noted on chux. Comments: Pt seen and examined. Doing well. Comfortable w/ epidural but complaining of increased pressure. FHT reassuring. Afebrile. Anticipate soon. Reviewed anticipated course of 2nd stage of labor / delivery. All questions answered. FETUS A: [id number] FHR Baseline: 130 Variability: Minimal - >Undetectable to <=5bpm Accelerations: 15X15 Decelerations: Variable FHR Category: Category II Presentation: Vertex Comments on Fetus A: No evidence of metabolic acidosis FETUS B: [id number] Signing Physician: Suzanne Morgan DO Copies: ~ *Electronically Signed* 07/19/24 0337 SUZANNE MORGAN (MICHAEL) DO PATIENT NAME: KAREY GUZMAN PROGRESS NOTE DATE OF : 00 PHYSICIAN: SUZANNE MORGAN (JD) DO RPT #: [id number] REPORT IS CONFIDENTIAL AND NOT TO BE RELEASED WITHOUT AUTHORIZATION
== END 2024-07-21 10:45 | disposition home or self-care (01) | DRG 805 ==
LOC: FBC 05:28
PROVIDERS: ADMIT Obstetrics & Gynecology; ATTEND Obstetrics & Gynecology
PROC: 10E0XZZ Delivery of Products of Conception, External Approach (ICD-10-PCS; principal; 2024-07-19)
PROC: 10907ZC Drainage of Amniotic Fluid, Therapeutic from Products of Conception, Via Natural or Artificial Opening (ICD-10-PCS; 2024-07-19)
PROC: 3E0R3BZ Introduction of Anesthetic Agent into Spinal Canal, Percutaneous Approach (ICD-10-PCS; 2024-07-19)
PROC: 00HU33Z Insertion of Infusion Device into Spinal Canal, Percutaneous Approach (ICD-10-PCS; 2024-07-19)
DX: O48.0 Post-term pregnancy (principal); O98.32 Other infections with a predominantly sexual mode of transmission complicating childbirth; Z37.0 Single live birth; O77.0 Labor and delivery complicated by meconium in amniotic fluid; O99.214 Obesity complicating childbirth; O99.02 Anemia complicating childbirth; Z3A.41 41 weeks gestation of pregnancy; Z87.891 Personal history of nicotine dependence; Z90.89 Acquired absence of other organs; Z79.899 Other long term (current) drug therapy; A60.00 Herpesviral infection of urogenital system, unspecified
CPT/HCPCS: 01960; 36415; 80307; 85025; 85027; 86850; 86900; 86901; A9270; J3105; J7121

== ENCOUNTER 2024-11-19 00:54 | Emergency (ER) | payer BC, OTHER ==
[~2024-11-19] VITALS: Ht 152.4 cm; Wt 120.0 kg
[2024-11-19] MEDS ORDERED: FAMOTIDINE 20 MG/ 2 ML VIAL IV ONE (01:15)
[2024-11-19] MEDS ORDERED: DEXAMETHASONE SOD PHOS 10 MG/ML VIAL IV ONE (01:15)
[2024-11-19] MEDS ORDERED: CETIRIZINE HCL 10 MG TAB PO ONE (01:15)
[2024-11-19] MEDS ORDERED: diphenhydrAMINE HCL 50 MG/ML VIAL IV ONE (01:15)
[2024-11-19 01:53] LABS: BASOPHILS 0.6 % (0-2); EOSINOPHILS 6.6 % (0-6); HEMOGLOBIN 13.3 g/dL (12.0-18.0); LYMPHOCYTES 49.2 % (24-44); MCH 27.7 (27-36); MCHC 33.3 g/dl (30-36); MCV 83.3 fl (81-99); MONOCYTES 11.2 % (0-12); NEUTROPHILS 32.4 % (39-80); PLATELET COUNT 173 K/uL (140-440); RBC 4.81 M/ul (4.3-5.7); RDW 14.8 (10.5-15.0)
[2024-11-19] MEDS ORDERED: ZYRTEC10 MG PO (02:40)
[2024-11-19] MEDS ORDERED: methylPREDNISolone 4 MG HOME.PACK PO ONE (02:45)
[2024-11-19 02:53] VITALS: BP 137/78
== END 2024-11-19 02:54 | disposition home or self-care (01) ==
LOC: ED 00:54
PROVIDERS: Family Medicine
DX: T78.40XA Allergy, unspecified, initial encounter (principal); Z87.891 Personal history of nicotine dependence
CPT/HCPCS: 36415; 85025; 86140; 96374; 96375; 99283-25; J1100; J1200

== ENCOUNTER 2025-04-20 10:13 | Day surgery (SDC) | payer BC, OTHER ==
[~2025-04-20] VITALS: Ht 160 cm; Wt 123.6 kg
[~2025-04-20 10:13] MED LIST changes: +IBLOOD GLUCOSE TEST STRIP 1 EA TEST VI PRN; +LACTATED RINGER'S 1,000 ML IV SCH; +LIDOCAINE HCL 1% 5 ML SDV INJ ONE; +MIDAZOLAM HCL 5 MG/5 ML VIAL IV PRN; +ZYRTEC10 MG PO; +fentaNYL citrate 100 MCG/2 ML VIAL IV PRN
[2025-04-20] MEDS ORDERED: MIDAZOLAM HCL 5 MG/5 ML VIAL ONE (10:39)
[2025-04-20 10:41] VITALS: BP 114/47
[2025-04-20] MEDS ORDERED: fentaNYL citrate 100 MCG/2 ML VIAL ONE (10:41)
[2025-04-20 12:26] VITALS: BP 118/59
--- NOTE | 2025-04-20 12:45 | OR ---
[facility] [address] [place], [place] [address] Signed DATE OF OPERATION: 04/20/2025 SURGEON: Leif Claros MD PREOPERATIVE DIAGNOSES: 1. Persistent diarrhea. 2. Family history of colon cancer, grandmother. POSTOPERATIVE DIAGNOSIS: Small flat polyp, left colon, excised. Otherwise normal. PROCEDURE: Total colonoscopy to cecum with random biopsies and cold snare polypectomy x1. ANESTHESIA: Intravenous sedation, fentanyl 150 mcg, Versed 6 mg. INDICATION: This 24-year-old white woman is a patient of Dr. Caitie Hernandez and referred for a possible lipoma of the supra gluteal crease, which is unlikely to be a lipoma based on clinical evaluation. She also she has had relentless diarrhea for the past one and half months. She has no recent exposure to antibiotics or anything of that sort. She is admitted at this time to undergo colonoscopy to better characterize her diarrhea problem. Understands the risk of bleeding, infection, perforation. FINDINGS: The prep was excellent. Complete colonoscopy was undertaken of the cecum. She had a small flat polyp at the left colon at 50 cm which was excised with cold snare technique. The remaining colon was normal. Random biopsies were obtained. DESCRIPTION OF PROCEDURE: The patient was brought to the endoscopy suite and placed in lateral decubitus position, given intravenous sedation to the point of slurred speech and nystagmus. Digital rectal examination was normal. An Olympus video colonoscope was passed in the rectum and manipulated throughout the colon ultimately intubating the cecum itself. The ileocecal valve and appendiceal orifice were normal. Biopsies were taken of the right colon. Upon withdrawal of scope, as well as elsewhere including the transverse and left colon. There was a small flat polyp of left colon, was excised with cold snare technique. Specimen passed for pathology. Biopsies were taken of rectum as well, though it appeared normal clinically. Scope was removed. The patient taken to recovery room in Electronically Signed By: LEFI CLAROS MD 04/20/25 1245 PATIENT NAME: KAREY GUZMAN OPERATIVE REPORT DATE OF : 00 REPORT #: [id number] PHYSICIAN: LEIF CLAROS MD PCP: CAITIE HERNANDEZ MD REPORT IS CONFIDENTIAL AND NOT TO BE RELEASED WITHOUT AUTHORIZATION [facility] [address] [place] [address] Signed good condition. CONCLUDING DIAGNOSIS: Diarrhea of uncertain etiology; incidental finding of polyps. PLAN: Recommend Citrucel fiber supplement one scoop p.o. daily. We will see her back in my office in six weeks more or less to assess her progress and further guide testing as appropriate. MD HENRIK Trejo/AZUCENAL /[id number] cc: Caitie Hernandez MD Copies: CAITIE HERNANDEZ DMD ~ Electronically Signed By: LEIF CLAROS MD 04/20/25 1245 PATIENT NAME: KAREY GUZMAN OPERATIVE REPORT DATE OF : 00 REPORT #: [id number] PHYSICIAN: LEIF CLAROS MD PCP: CAITIE HERNANDEZ MD REPORT IS CONFIDENTIAL AND NOT TO BE RELEASED WITHOUT AUTHORIZATION
--- NOTE | 2025-04-20 13:54 | NUR ---
04/20/25 1354 Morgan,Chantelle Gale 1115: PATIENT ARRIVED TO DAY SURGERY UNIT DROWSY. DENIES PAIN. 1140: DISCHARGE INSTRUCTIONS GIVEN TO PATIENT. 1200: PATIENT GETTING DRESSED. 1215: IV DC'D WNL. TIP INTACT. DRESSING APPLIED. PATIENT DISCHARGED TO HOME VIA WHEELCHAIR WITH BOYFRIEND.
--- NOTE | 2025-04-25 11:53 | PATH ---
[facility] [address] [place], [place] [address] Signed SPECIMEN(S): A LEFT COLON POLYP SPECIMEN(S): B RIGHT COLON BIOPSY SPECIMEN(S): C TRANSVERSE COLON BIOPSY SPECIMEN(S): D RECTUM BIOPSY SPECIMEN SOURCE: A. LEFT COLON POLYP B. RIGHT COLON BIOPSY C. TRANSVERSE COLON BIOPSY D. RECTUM BIOPSY CLINICAL HISTORY: Screening, diarrhea. Polyp x 1. A) polyp, B-D) biopsy FINAL PATHOLOGIC DIAGNOSIS: A. Left colon polyp - Hyperplastic colonic mucosa. B. Right colon, biopsies - Unremarkable colonic mucosa, negative for colitis, granulomas or dysplasia. C. Transverse colon, biopsy - Unremarkable colonic mucosa, negative for colitis, granulomas or dysplasia. D. Rectum, biopsies - Unremarkable colonic mucosa, negative for colitis, granulomas or dysplasia. AMB MICROSCOPIC EXAMINATION: Histologic sections of all submitted blocks are examined by light microscopy. These findings, together with the gross examination, support the pathologic diagnosis. GROSS DESCRIPTION: A. The specimen, labeled and designated "Magaly, left colon polyp," is received in formalin and consists of one chamberlain soft tissue fragment, 0.3 cm. Entirely submitted in (A1). B. The specimen, labeled and designated "Magaly, right colon biopsy," is received in formalin and consists of one chamberlain soft tissue fragment, 0.4 cm. Entirely submitted in (B1). C. The specimen, labeled and designated "Magaly, transverse colon biopsy," is received in formalin and consists of one chamberlain soft tissue fragment, 0.4 cm. Entirely submitted in (C1). PATIENT NAME: KAREY GUZMAN PATHOLOGY DATE OF : 00 REPORT #: [id number] PHYSICIAN: MARICHUY JOHNS PCP: CAITIE HERNANDEZ MD REPORT IS CONFIDENTIAL AND NOT TO BE RELEASED WITHOUT AUTHORIZATION [facility] [address] [place], [place] [address] Signed D. The specimen, labeled and designated "Magaly rectum biopsy," is received in formalin and consists of two chamberlain soft tissue fragments, ranging from 0.2-0.3 cm. Entirely submitted in (D1). AB (under the direct supervision of a pathologist) The Gross Description was prepared using a voice recognition system. The report was reviewed for accuracy; however, sound-alike word errors, addition and/or deletions may occur. If there is any question about this report, please contact Client Services. ADDITIONAL NOTES: Immunohistochemical and/or in situ hybridization studies if performed in this case included appropriate positive controls that reacted as expected. This test was developed and its performance characteristics determined by [facility]. It has not been cleared or approved by the U.S. Food and Drug Administration. The FDA has determined that such clearance or approval is not necessary. This test is used for clinical purposes. It should not be regarded as investigational or for research. [facility] is certified under the Clinical Laboratory Improvement Amendments of 1988 (CLIA) as qualified to perform high complexity clinical laboratory testing. PERFORMING LABORATORY: Technical component was performed by [facility], [address] [place] [id number] (CLIA# [id number]). Professional interpretation was performed by [facility] - [address] [id number] Diagnostician: Carmela Baker MD Pathologist Electronically Signed 04/25/2025 Copies: ~ PATIENT NAME: KAREY GUZMAN PATHOLOGY DATE OF : 00 REPORT #: [id number] PHYSICIAN: MARICHUY PATHOLOGY PCP: CAITIE HERNANDEZ MD REPORT IS CONFIDENTIAL AND NOT TO BE RELEASED WITHOUT AUTHORIZATION
== END 2025-04-20 12:15 | disposition home or self-care (01) ==
LOC: DS 10:13
PROVIDERS: ATTEND Surgery
PROC: 0DBE8ZX Excision of Large Intestine, Via Natural or Artificial Opening Endoscopic, Diagnostic (ICD-10-PCS; 2025-04-20)
PROC: 0DBL8ZX Excision of Transverse Colon, Via Natural or Artificial Opening Endoscopic, Diagnostic (ICD-10-PCS; principal; 2025-04-20 12:00)
DX: K52.9 Noninfective gastroenteritis and colitis, unspecified (principal); K63.5 Polyp of colon; E66.01 Morbid (severe) obesity due to excess calories; Z68.42 Body mass index [BMI] 45.0-49.9, adult; Z87.891 Personal history of nicotine dependence
CPT/HCPCS: 84703; 99153; G0500; J2250; J3010